=== PATIENT | male | born 1995 | race Caucasian/White ===

== ENCOUNTER 2020-01-10 21:07 | Inpatient (IN) | payer MEDICAID ==
[~2020-01-10] VITALS: Ht 175.3 cm; Wt 59.0 kg
[2020-01-10] MEDS ORDERED: LORAZEPAM 2MG/ML CPJ IV ONE ×2 (22:15)
[2020-01-10] MEDS ORDERED: ACETAMINOPHEN 650MG SUPP PR ONE (22:15)
[2020-01-10] MEDS ORDERED: VANCOMYCIN 1 G PREMIX 200 ML IV SCH (22:15)
[2020-01-10] MEDS ORDERED: SODIUM CHLORIDE 0.9% 1000ML BAG (SEPSIS BOLUS) IV ONE (22:15)
[2020-01-10] MEDS: DEXAMETHASONE 10 MG/ML VIAL IV ONE ×2 (22:25→23:25)
[2020-01-10] MEDS: CEFTRIAXONE 2 G PREMIX 50 ML IV ONE ×2 (22:40→23:40)
[2020-01-10] MEDS ORDERED: ONDANSETRON HCL 4MG/2ML INJ IV ONE (22:45)
[2020-01-10 22:56] LABS: HEMATOCRIT. 39.2 % (42.0-52.0); HEMOGLOBIN. 13.8 g/dL (14.0-18.0); MEAN CORPUSCULAR HEMOGLOBIN 30.1 pg (28.0-32.0); MEAN CORPUSCULAR VOLUME 85.6 fL (80.0-94.0); MEAN PLATELET VOLUME 8.5 fl (7.4-10.4); PLATELET 154 x1000/uL (130-400); RED BLOOD CELL COUNT 4.58 mill/uL (4.7-6.1); RED CELL DISTRIBUTION WIDTH 13.1 % (11.6-14.6)
[2020-01-10 22:58] LABS: CHLORIDE 93 mEq/L (98-107)
[2020-01-10] MEDS ORDERED: ACYCLOVIR INJ 750 MG in DEXT 5% WATER 125 ML IV STA (22:59)
[2020-01-10 23:02] LABS: ETHANOL BLOOD < 10 mg/dL
[2020-01-10 23:03] LABS: INR 1.4; PARTIAL THROMBOPLASTIN TIME 29.9 sec (23.4-31.0); PROTHROMBIN TIME 14.6 sec (9.6-11.0)
[2020-01-10 23:28] LABS: PLATELET ESTIMATE NORMAL
[2020-01-10] MEDS ORDERED: LIDOCAINE HCL/PF 1% 10 MG/ML 5ML VIAL IJ ONE (23:30)
[2020-01-10 23:33] LABS: CLARITY URINE CLEAR (CLEAR); COLOR URINE YELLOW (YELLOW); KETONES URINE NEGATIVE (NEGATIVE); LEUKOCYTE ESTERASE URINE NEGATIVE (NEGATIVE); NITRITE URINE NEGATIVE (NEGATIVE); OCCULT BLOOD URINE TRACE (NEGATIVE); PH URINE 6.5 (4.5-8.0); PROTEIN URINE NEGATIVE (NEGATIVE); SPECIFIC GRAVITY URINE 1.019 (1.005-1.030); UROBILINOGEN URINE 0.2 E.U./dL (0.2-1.0)
[2020-01-11] VITALS (67 sets, daily range): BP systolic 94–169; BP diastolic 35–95
[2020-01-11] LABS: *AMPHETAMINES SCREEN URINE PRESUMTIVE POSITIVE (NEGATIVE); *BARBITURATES SCREEN URINE NEGATIVE (NEGATIVE); *BENZODIAZEPINES SCREEN URINE NEGATIVE (NEGATIVE); *COCAINE SCREEN URINE NEGATIVE (NEGATIVE)
[2020-01-11 00:01] LABS: CANNABINOID URINE SCREEN NEGATIVE (NEGATIVE); METHADONE URINE SCREEN NEGATIVE (NEGATIVE); OPIATES URINE SCREEN NEGATIVE (NEGATIVE); PHENCYCLIDINE URINE SCREEN NEGATIVE (NEGATIVE)
[2020-01-11 01:25] LABS: GLUCOSE CSF 83 mg/dL (41-75)
[2020-01-11] MEDS ORDERED: CLONIDINE 0.1MG TABLET PO PRN (01:30)
[2020-01-11] MEDS ORDERED: POTASSIUM CHLORIDE INJ 40 MEQ in DEXT 5% WATER 250 ML IV ONE (01:30)
[2020-01-11] MEDS ORDERED: PIPERACILLIN/TAZ 3.375G PREMIX 50 ML IV SCH (01:30)
[2020-01-11] MEDS ORDERED: ENOXAPARIN 40MG/0.4ML SYR SUBCUT SCH (01:30)
[2020-01-11] MEDS ORDERED: DIPHENHYDRAMINE 50MG/ML VIAL IV PRN (01:30)
[2020-01-11] MEDS ORDERED: ONDANSETRON HCL 4MG/2ML INJ IV PRN (01:30)
[2020-01-11] MEDS ORDERED: LORAZEPAM 2MG/ML CPJ IV PRN (01:30)
[2020-01-11] MEDS ORDERED: DOCUSATE SODIUM 100MG CAPSULE PO PRN (01:30)
[2020-01-11] MEDS ORDERED: HYDROCODONE/ACETAMINOPHEN 10/325MG TABLET PO PRN (01:30)
[2020-01-11] MEDS ORDERED: IPRATROPIUM/ALBUTEROL 0.5-3(2.5)MG/3ML NEB HHN PRN (01:30)
[2020-01-11] MEDS ORDERED: MAGNESIUM/ALUMINUM HYDROXIDE/SIMETHICONE 30ML UDC PO PRN (01:30)
[2020-01-11] MEDS ORDERED: GUAIFENESIN 200MG/10ML SUGAR FREE UDC PO PRN (01:30)
[2020-01-11] MEDS ORDERED: MORPHINE SULFATE 2 MG/ML CPJ (NOT FOR IM USE) IV PRN (01:30)
[2020-01-11] MEDS ORDERED: ACETAMINOPHEN 325MG TABLET PO PRN (01:30)
[2020-01-11] MEDS: DEXT 5%/0.9% NACL 1,000 ML IV SCH ×2 (03:59→12:19)
[2020-01-11] MEDS ORDERED: SODIUM CHLORIDE 0.9% INJ 3ML FLUSH IVF SCH (06:00)
[2020-01-11] MEDS: PIPERACILLIN/TAZOBACTAM 3.375 G in DEXT 5% WATER 100 ML IV SCH ×3 (06:07→21:52)
[2020-01-11] MEDS ORDERED: VANCOMYCIN 1500MG in DEXTROSE 5% WATER 250ML IV SCH (08:00)
[2020-01-11] MEDS: ENOXAPARIN 40MG/0.4ML SYR SUBCUT SCH (09:16)
[2020-01-11] MEDS: VANCOMYCIN 1 G PREMIX 200 ML IV SCH ×2 (10:33→17:49)
[2020-01-11] MEDS ORDERED: DIATR MEGLU/DIATRIZOATE SOLN 30ML PO SCH (11:30)
[2020-01-11 12:04] LABS: HEMATOCRIT 41.7 % (42.0-52.0); HEMOGLOBIN 14.8 g/dL (14.0-18.0); MEAN CORPUSCULAR HEMOGLOBIN 30.4 pg (28.0-32.0); MEAN CORPUSCULAR VOLUME 85.7 fL (80.0-94.0); PLATELET 113 x1000/uL (130-400); RED BLOOD CELL COUNT 4.87 mill/uL (4.7-6.1); RED CELL DISTRIBUTION WIDTH 13.2 % (11.6-14.6)
[2020-01-11 12:17] LABS: CHLORIDE 103 mEq/L (98-107)
[2020-01-11] MEDS ORDERED: BENZ1TAB7 PO (13:50)
[2020-01-11] MEDS: DEXT 5%/0.45% NACL 1000ML 1,000 ML IV SCH (14:28)
[2020-01-12] VITALS (9 sets, daily range): BP systolic 95–117; BP diastolic 52–74
[2020-01-12] MEDS: DEXT 5%/0.45% NACL 1000ML 1,000 ML IV SCH (01:39)
[2020-01-12] MEDS: VANCOMYCIN 1 G PREMIX 200 ML IV SCH ×2 (01:39→10:17)
[2020-01-12] MEDS: PIPERACILLIN/TAZOBACTAM 3.375 G in DEXT 5% WATER 100 ML IV SCH ×2 (05:32→14:25)
[2020-01-12 07:00] LABS: BASOPHILS % 0.2 % (0.0-2.0); EOSINOPHILS % 0.1 % (0.0-5.0); HEMATOCRIT. 41.5 % (42.0-52.0); HEMOGLOBIN. 14.4 g/dL (14.0-18.0); LYMPHOCYTES % 18.6 % (20.0-50.0); MEAN CORPUSCULAR HEMOGLOBIN 30.1 pg (28.0-32.0); MEAN CORPUSCULAR VOLUME 86.4 fL (80.0-94.0); MEAN PLATELET VOLUME 9.3 fl (7.4-10.4); MONOCYTES % 7.7 % (2.0-8.0); NEUTROPHILS % 73.4 % (40.0-76.0); PLATELET 90 x1000/uL (130-400); RED CELL DISTRIBUTION WIDTH 13.4 % (11.6-14.6)
[2020-01-12 07:11] LABS: CHLORIDE 103 mEq/L (98-107)
[2020-01-12 07:22] LABS: CREATINE KINASE 409 IU/L (39-308)
[2020-01-12] MEDS: ENOXAPARIN 40MG/0.4ML SYR SUBCUT SCH (09:14)
[2020-01-12] MEDS ORDERED: LORAZEPAM 2MG/ML CPJ IV PRN (17:45)
[2020-01-12] MEDS ORDERED: ONDANSETRON HCL 4MG/2ML INJ IV PRN (17:45)
[2020-01-12] MEDS ORDERED: CLONIDINE 0.1MG TABLET PO PRN (17:45)
[2020-01-12] MEDS ORDERED: GUAIFENESIN 200MG/10ML SUGAR FREE UDC PO PRN (17:45)
[2020-01-12] MEDS ORDERED: MORPHINE SULFATE 2 MG/ML CPJ (NOT FOR IM USE) IV PRN (17:45)
[2020-01-12] MEDS ORDERED: ACETAMINOPHEN 325MG TABLET PO PRN (17:45)
[2020-01-12] MEDS ORDERED: MAGNESIUM/ALUMINUM HYDROXIDE/SIMETHICONE 30ML UDC PO PRN (17:45)
[2020-01-12] MEDS ORDERED: IPRATROPIUM/ALBUTEROL 0.5-3(2.5)MG/3ML NEB HHN PRN (17:45)
[2020-01-12] MEDS ORDERED: DIPHENHYDRAMINE 50MG/ML VIAL IV PRN (17:45)
[2020-01-12] MEDS ORDERED: DOCUSATE SODIUM 100MG CAPSULE PO PRN (17:45)
[2020-01-12] MEDS ORDERED: HYDROCODONE/ACETAMINOPHEN 10/325MG TABLET PO PRN (17:45)
[2020-01-12] MEDS ORDERED: VANCOMYCIN 1500MG in DEXTROSE 5% WATER 250ML IV SCH (18:00)
[2020-01-13] VITALS: BP 102/60
[2020-01-13 04:00] VITALS: BP 99/62
[2020-01-13 06:06] LABS: CHLORIDE 104 mEq/L (98-107)
[2020-01-13 06:25] LABS: CREATINE KINASE 177 IU/L (39-308)
[2020-01-13] MEDS: DEXT 5%/0.45% NACL 1000ML 1,000 ML IV SCH (06:25)
[2020-01-13 06:28] LABS: BASOPHILS % 0.3 % (0.0-2.0); EOSINOPHILS % 0.4 % (0.0-5.0); HEMATOCRIT. 42.2 % (42.0-52.0); HEMOGLOBIN. 14.6 g/dL (14.0-18.0); LYMPHOCYTES % 24.3 % (20.0-50.0); MEAN CORPUSCULAR HEMOGLOBIN 30.4 pg (28.0-32.0); MEAN CORPUSCULAR VOLUME 87.6 fL (80.0-94.0); MEAN PLATELET VOLUME 10.3 fl (7.4-10.4); MONOCYTES % 5.9 % (2.0-8.0); NEUTROPHILS % 69.1 % (40.0-76.0); PLATELET 80 x1000/uL (130-400); RED BLOOD CELL COUNT 4.81 mill/uL (4.7-6.1); RED CELL DISTRIBUTION WIDTH 13.4 % (11.6-14.6)
[2020-01-13 08:00] VITALS: BP 99/61
[2020-01-13] MEDS: ENOXAPARIN 40MG/0.4ML SYR SUBCUT SCH (09:46)
[2020-01-13 12:00] VITALS: BP 99/68
[2020-01-13 12:19] VITALS: BP 99/68
== END 2020-01-13 15:28 | disposition home or self-care (01) | DRG 720 ==
LOC: ER 21:07 → MICUSO 01-11 01:25 → ENRESERV 01-11 01:55 → 6WST 01-12 01:50
PROVIDERS: ADMIT Internal Medicine; ATTEND Internal Medicine
PROC: 009U3ZX Drainage of Spinal Canal, Percutaneous Approach, Diagnostic (ICD-10-PCS; 2020-01-10)
PROC: 05HY33Z Insertion of Infusion Device into Upper Vein, Percutaneous Approach (ICD-10-PCS; principal; 2020-01-11)
PROC: B54MZZA Ultrasonography of Right Upper Extremity Veins, Guidance (ICD-10-PCS; 2020-01-11)
DX: A41.9 Sepsis, unspecified organism (principal); G92 Toxic encephalopathy; D68.9 Coagulation defect, unspecified; E87.1 Hypo-osmolality and hyponatremia; E87.2 Acidosis; E87.6 Hypokalemia; F15.129 Other stimulant abuse with intoxication, unspecified; F20.9 Schizophrenia, unspecified; G21.0 Malignant neuroleptic syndrome; Z20.828 Contact with and (suspected) exposure to other viral communicable diseases; R35.8 Other polyuria; Z59.0 Homelessness; Z91.14 Patient's other noncompliance with medication regimen
CPT/HCPCS: 36415; 71045; 74176; 76937; 80048; 80053; 80061; 80178; 80202; 80305; 80320; 81003; 82533; 82550; 82705; 82945; 83605; 83880; 83930; 83935; 84145; 84157; 84443; 84484; 85025; 85027; 86592; 86703; 87015; 87045; 87070; 87116; 87210; 87426; 87427; 87449; 87899; 93005; 93970; 99291; C1725; J0133; J0696; J1100; J1650; J2060; J2405; J2543; J3370; J3480; J3490; J7030; J7042; J7060; Q9963; G0480

== ENCOUNTER 2021-01-19 18:21 | Emergency (ER) | payer MEDICAID ==
[~2021-01-19] VITALS: Ht 165.1 cm; Wt 85.0 kg
[~2021-01-19 18:21] MED LIST: BENZ1TAB7 PO
[2021-01-19] MEDS ORDERED: LIDOCAINE HCL/EPINEPHRINE 1%-EPI 1:100,000 20 ML VIAL INFIL ONE (19:45)
[2021-01-19] MEDS ORDERED: AMOX1TAB16 MT (20:57)
[2021-01-19] MEDS ORDERED: IBUP-2029 MT (21:00)
[2021-01-19 21:30] VITALS: BP 128/72
== END 2021-01-19 23:00 | disposition left against medical advice (07) ==
LOC: ER 18:21
DX: S91.202A Unspecified open wound of left great toe with damage to nail, initial encounter (principal); L03.032 Cellulitis of left toe; W18.39XA Other fall on same level, initial encounter; Y93.89 Activity, other specified; Y92.89 Other specified places as the place of occurrence of the external cause; Y99.8 Other external cause status
CPT/HCPCS: 99283; J3490